=== PATIENT | male | born 2000 | race American Indian/Alaskan Native ===

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

== ENCOUNTER 2024-02-12 07:29 | Day surgery (SDC) | payer MEDICAID ==
[2024-02-12] MEDS ORDERED: Propofol 200 MG/20 ML SDV ONE (07:47)
[2024-02-12] MEDS ORDERED: Midazolam 1 MG/ML 2 ML SDV ONE (07:47)
[2024-02-12] MEDS ORDERED: fentaNYL 100 MCG/2 ML SDV ONE ×2 (07:47→09:22)
[2024-02-12 08:06] LABS: BASOPHILS ABSOLUTE AUTO 0.05 K/uL (0.00-0.10); BASOPHILS PERCENT AUTO 0.8 % (0.1-1.3); EOSINOPHILS ABSOLUTE AUTO 0.09 K/uL (0.00-0.40); EOSINOPHILS PERCENT AUTO 1.4 % (0.0-5.4); HEMATOCRIT 40.8 % (38.4-49.7); HEMOGLOBIN 14.3 g/dL (12.9-16.9); IMMATURE GRAN ABSOLUTE AUTO 0.04 K/uL (0.00-0.23); IMMATURE GRAN PERCENT AUTO 0.6 % (0.0-0.7); LYMPHOCYTES ABSOLUTE AUTO 2.75 K/uL (0.8-3.3); LYMPHOCYTES PERCENT AUTO 43.7 % (11.4-47.7); MEAN CORPUSCULAR HEMOGLOBIN 29.9 pg (31.6-35.5); MEAN CORPUSCULAR VOLUME 85.2 fL (81.4-99.0); MONOCYTES ABSOLUTE AUTO 0.29 K/uL (0.20-0.90); MONOCYTES PERCENT AUTO 4.6 % (3.3-12.6); NEUTROPHILS ABSOLUTE AUTO 3.08 K/uL (1.0-7.6); NEUTROPHILS PERCENT AUTO 48.9 % (40.0-78.1); PLATELET COUNT,PLT 182 K/uL (130-375); RED BLOOD CELL COUNT 4.79 M/uL (4.14-5.76); WHITE BLOOD CELL COUNT,WBC 6.3 K/uL (3.2-11.0)
[2024-02-12] MEDS: Nozin Nasal Sanitizer NASBOTH ONE (08:13)
[2024-02-12] MEDS: Lactated Ringers 1,000 ML IV SCH (08:14)
[2024-02-12 08:21] LABS: ANION GAP 12.2 mmol/L (5.0-14.0); CALCIUM 8.6 mg/dL (8.5-10.1); CREATININE 0.7 mg/dL (0.8-1.3); EST CRCL DRUG DOSING (CG) 135.91 mL/min; POTASSIUM,K 3.9 mmol/L (3.6-5.2)
[2024-02-12] MEDS: ceFAZolin 2 GM in Premix Bag 1 BAG IV ONE (08:53)
[2024-02-12] MEDS ORDERED: Dexamethasone 4 MG/ML SDV ONE (09:16)
[2024-02-12] MEDS ORDERED: Ondansetron 4 MG/2 ML SDV ONE (09:16)
[2024-02-12] MEDS ORDERED: fentaNYL 250 MCG/5 ML SDV ONE (09:20)
[2024-02-12] MEDS: Bupivacaine 0.5% 50 ML MDV ONE (09:38)
[2024-02-12] MEDS ORDERED: Lactated Ringers 1,000 ML ONE (09:55)
[2024-02-12] MEDS: Acetaminophen/HYDROcodone 325-5 MG Tab PO ONE (11:29)
== END 2024-02-12 12:11 | disposition home or self-care (01) ==
LOC: JP.SDS 07:29
PROVIDERS: ATTEND Specialist
DX: S52.201P Unspecified fracture of shaft of right ulna, subsequent encounter for closed fracture with malunion (principal); F17.200 Nicotine dependence, unspecified, uncomplicated
CPT/HCPCS: 01830; 25545; 36415; 80048; 85025; A9270; C1713; C1776; J0665; J0690; J1100; J2250; J2405; J2704; J3010; J7120

== ENCOUNTER 2024-11-04 05:52 | Day surgery (SDC) | payer MEDICAID ==
[2024-11-04 06:14] LABS: HEMATOCRIT 43.9 % (38.4-49.7); HEMOGLOBIN 14.8 g/dL (12.9-16.9); MEAN CORPUSCULAR HEMOGLOBIN 30.3 pg (31.6-35.5); MEAN CORPUSCULAR HGB CONC 33.7 g/dL (31.6-35.5); MEAN CORPUSCULAR VOLUME 89.8 fL (81.4-99.0); RED BLOOD CELL COUNT 4.89 M/uL (4.14-5.76); WHITE BLOOD CELL COUNT,WBC 6.1 K/uL (3.2-11.0)
[2024-11-04] MEDS: Nozin Nasal Sanitizer NASBOTH ONE (06:24)
[2024-11-04 06:29] LABS: ANION GAP 13.1 mmol/L (5.0-14.0); CREATININE 0.7 mg/dL (0.8-1.3); EST CRCL DRUG DOSING (CG) 144.58 mL/min; POTASSIUM,K 3.7 mmol/L (3.6-5.2)
[2024-11-04] MEDS: Lactated Ringers 1,000 ML IV SCH (06:36)
[2024-11-04] MEDS ORDERED: Lidocaine 1% 50 ML MDV ONE (06:45)
[2024-11-04] MEDS ORDERED: Propofol 200 MG/20 ML SDV ONE (07:25)
[2024-11-04] MEDS ORDERED: Midazolam 1 MG/ML 2 ML SDV ONE (07:26)
[2024-11-04] MEDS ORDERED: fentaNYL 100 MCG/2 ML SDV ONE (07:26)
[2024-11-04] MEDS: ceFAZolin 2 GM in Premix Bag 1 BAG IV ONE (08:14)
[2024-11-04] MEDS ORDERED: Glycopyrrolate 0.2 MG/ML 5 ML MDV ONE (08:21)
[2024-11-04] MEDS: Lidocaine 0.5% 50 ML SDV ONE (08:36)
[2024-11-04] MEDS: Bupivacaine 0.5% 30 ML SDV ONE (08:36)
[2024-11-04] MEDS: Acetaminophen/HYDROcodone 325-5 MG Tab PO PRN (10:02)
== END 2024-11-04 10:20 | disposition home or self-care (01) ==
LOC: JP.SDS 05:52
PROVIDERS: ATTEND Specialist
DX: T84.84XA Pain due to internal orthopedic prosthetic devices, implants and grafts, initial encounter (principal); Y83.8 Other surgical procedures as the cause of abnormal reaction of the patient, or of later complication, without mention of misadventure at the time of the procedure
CPT/HCPCS: 20680; 36415; 80048; 85027; A9270; J0665; J0690; J1596; J2250; J2704; J3010; J7120; 01830-QZ; J2003